=== PATIENT | male | born 2005 | race Caucasian/White ===

== ENCOUNTER 2025-10-13 14:31 | Emergency (ER) | payer MEDICAID ==
[~2025-10-13] VITALS: Ht 182.9 cm; Wt 58.9 kg
[2025-10-13 14:35] VITALS: BP 124/73; PULSE 90; RESP 18; TEMP 98.3; O2SAT 100
--- NOTE | 2025-10-13 16:38 | Physician Documentation ---
HPI ~ General Chief Complaint: Tooth Problem Stated Complaint: INFECTED TOOTH Time Seen by MD: 16:17 Primary Medical Doctor: None History of Present Illness HPI Comment This is a 19-year-old male with a history of broken right rear lower 2nd molar who presents one-week of progressively increasing right lower lateral facial swelling without pain or fever. Patient reports similar to previous episode in which he had a dental abscess. Patient reports no other acute symptoms or concerns. Medication Reconciliation Allergies: Coded Allergies: No Known Allergies (Unverified , 10/13/25) Scheduled Clindamycin HCl (Clindamycin HCl CAPSULE), 3 CAP PO TID Past Medical History Past Medical History: No Pertinent History Review of Systems ROS As stated above in the HPI, otherwise all systems are reviewed and negative. Physical Exam Vital Signs: Temperature: 98.3, Source: Temporal, Heart Rate: 90, Respiratory Rate: 18, BP: 124/73, Pulse Oximetry: 100, Weight: 58.900 Oxygen Flow Rate: 0 Physical Exam VITALS: Reviewed and as above. GENERAL: Alert, nontoxic appearing, no apparent distress. HEENT: Right lateral mandibular swelling and induration without fluctuance, minimal erythema, nontender. Right mandibular 2nd molar broken, severe decayed, no purulent drainage, no swelling or fluctuance at base. No other facial swelling, no submandibular swelling, no elevation of the tongue. No drooling. RESPIRATORY: No increased work of breathing, no respiratory distress, speaking in full clear sentences Progress Results/Orders Results/Orders Completed Orders - ZAN MARTÍNEZ Clindamycin Capsule (Cleocin Capsule) (10/13/25 16:45) Medications Received in ER Medications (Trade) Dose Ordered Sig/Viridiana Route PRN Reason Start Time Stop Time Status Last Admin Dose Admin (Cleocin capsule) 450 mg ONCE ONCE PO 10/13/25 16:45 10/13/25 16:46 DC 10/13/25 16:59 450 MG Vital Signs 10/13/25 10/13/25 14:35 17:03 Temp 98.3 Pulse 90 Resp 18 B/P (MAP) 124/73 Pulse Ox 100 O2 Flow Rate 0 Medical Decision Making Additional information obtaine: N/A Findings This well appearing 19-year-old male presented with localized facial swelling to right lateral mandible. Based on history and physical exam I have low clinical suspicion for peritonsillar abscess, uvulitis, deep tissue space infection of the head/neck, or impending airway compromise. There was no submandibular swelling or elevation of the tongue, the uvula was midline, patient is able to swallow fluids and secretion without difficulty, there is no increased work of breathing or noisy breathing. Based on presentation I am concerned for odontogenic infection and antibiotic treatment with clindamycin indicated. Cellulitis to the area considered however based on patient's description of progression of symptoms less likely. Patient has been instructed to follow up as soon as possible with a dentist. Pain control with non-narcotic medications is appropriate at this time. Patient is otherwise well-appearing and appropriate for outpatient follow up. Differential Dx:Considerations: Include: Alveolar fracture, Alveolar osteitis, ANUG, Facial Cellulitis, Periapical abscess, Peridontal abscess, Post-extraction bleeding, Pulpitis, Tooth Fracture, Trigeminal neuralgia, Tooth subluxation Departure Time of Disposition: 16:43 Disposition: 01 HOME / SELF CARE / HOMELESS Impression: Primary Impression: Dental abscess Condition: Improved Discharge Instructions: Dental Abscess Additional Instructions: Please take the antibiotics as prescribed. Follow up as soon as possible with a dentist. Please follow up with your primary care provider in the next few days. Please return to the emergency department for any new or worsening concerning symptoms. Referrals: NO PRIMARY CARE PROVIDER (PCP) Prescriptions Clindamycin HCl (Clindamycin HCl CAPSULE) 150 Mg Capsule 3 CAP PO TID for 10 Days, #90 CAP Prov: ZAN MARTÍNEZ 10/13/25 Education Educated: Patient Educated regarding: diagnosis, treatment, prognosis, need for follow up Signature Scribe Signature: No scribe Attestation: The note accurately reflects work and decisions made by me.JEFFERSON Brito 10/13/25 20:14 ZAN MARTÍNEZ Oct 13, 2025 16:38
[2025-10-13] MEDS ORDERED: CLIN-214 PO (16:45)
== END 2025-10-13 17:04 | disposition home or self-care (01) ==
LOC: ER 14:32
DX: K04.7 Periapical abscess without sinus (principal)
CPT/HCPCS: 99283